=== PATIENT | female | born 1985 | race Caucasian/White ===

== ENCOUNTER 2022-11-11 12:01 | Emergency (ER) | payer MEDICAID, OTHER ==
[~2022-11-11] VITALS: Ht 167 cm; Wt 84.0 kg
[2022-11-11] MEDS ORDERED: ONDANSETRON 4 MG/2 ML (SDV) Z0FRAN IVP ONE (12:15)
[2022-11-11] MEDS ORDERED: KETOROLAC 30 MG/ML VIAL IVP ONE (12:15)
--- NOTE | 2022-11-11 12:15 | ED Chest Pain ---
General Chief Complaint: Chest Pain Stated Complaint: CHEST PAIN/TIGHTNESS Nursing Triage Note: PT AMB TO RM 2 PT CO OF CHEST PAIN THAT STARTED WHILE IN [facility] RATES 10/10, PT HAS INCREASED PAIN WHEN TAKING A DEEP BREATH. PT DECRIBES STABBING AND TIGHT, RADIATES TO SHOULDER Source: patient Exam Limitations: no limitations History of Present Illness Date Seen by Provider: Nov 11, 2022 Time Seen by Provider: 12:05 Initial Comments Patient is a 37-year-old female who presents to the emergency department today with a chief complaint of left-sided chest pain radiating into her left shoulder and shoulder blade. Taking a deep breath seems to make her pain worse . patient states it started at [facility] between 930 and 10:00 this morning. She states at its onset it was a "10 out of 10". She feels like she is a little nauseous and short of breath due to the pain. She did not break out into a sweat. She did not take anything for the pain. She states they ended up leaving [facility] early. No recent fevers or chills. She has been a little congested but no cough. No abdominal pain. No problems with bowel or bladder. No urinary frequency or dysuria. No swelling in her legs. No recent travel or prolonged immobility. She finished her menstrual cycle yesterday. She had an ablation earlier in the year and thought it was a little unusual that she had a period. She states the pain is actually little better now that she is in the emergency room. She rates it at a "7". No significant past medical history, hypercholesterolemia diabetes or hypertension. She is a smoker. No family history of early coronary artery disease younger than 55. All other review of systems reviewed and negative except as stated Timing/Duration: 1-3 hours Severity/Quality: severe, pressure, sharp Location: central, shoulder (left shoulder and shoulder blade) Radiation: shoulders Activities at Onset: other (sitting in [facility]) Prior CP/Workup: no prior chest pain, no prior cardiac workup Modifying Factors: worse with breathing ASA po BULK INTAKE WORKER: No NTG SL BULK INTAKE WORKER: No Associated Symptoms: nausea/vomiting, shortness of breath Allergies and Home Medications Allergies Coded Allergies: sulfamethoxazole (Verified Allergy, Unknown, 11/11/22) trimethoprim (Verified Allergy, Unknown, 11/11/22) Patient Home Medication List Home Medication List Reviewed: Yes Review of Systems Review of Systems Constitutional: see HPI EENTM: No Symptoms Reported Respiratory: Shortness of Air Cardiovascular: Chest Pain Gastrointestinal: Nausea Genitourinary: No Symptoms Reported Musculoskeletal: joint pain (Left shoulder, shoulder blade) Skin: no symptoms reported Psychiatric/Neurological: Anxiety (Tearful, and) All Other Systems Reviewed Negative Unless Noted: Yes Past Vcubzjv-Wqffwe-Kxzeht Hx Patient Social History Tobacco Use?: Yes Substance use?: No Alcohol Use?: No Pt feels they are or have been: No Immunizations Up To Date Influenza Vaccine Up-to-Date: Yes; Up-to-Date Past Medical History Surgery/Hospitalization HX: NONE Last Menstrual Period: Nov 06, 2022 Physical Exam Vital Signs Vital Signs - First Documented 11/11/22 12:05 Pulse 86 Resp 18 B/P (MAP) 122/78 (93) Pulse Ox 98 Capillary Refill : Less Than 3 Seconds Height, Weight, BMI Height: '" Weight: lbs. oz. kg; 30.00 BMI Method: General Appearance: No Apparent Distress, Anxious HEENT: PERRL/EOMI Neck: Normal Inspection Respiratory: Lungs Clear, Normal Breath Sounds, No Accessory Muscle Use, No Respiratory Distress Cardiovascular: Regular Rate, Rhythm, Normal Peripheral Pulses (2+ radial pulses bilateral) Gastrointestinal: Normal Bowel Sounds, Non Tender, Soft Extremity: Normal Capillary Refill, Normal Inspection, Normal Range of Motion, Non Tender, No Calf Tenderness, No Pedal Edema Neurologic/Psychiatric: Alert, Oriented x3, No Motor/Sensory Deficits, Normal Mood/Affect, estate planning attorney II-XII Norm as Tested Skin: Normal Color, Warm/Dry Progress/Results/Core Measures Results/Orders Lab Results Laboratory Tests Test 11/11/22 12:10 Range/Units White Blood Count 7.6 4.3-11.0 10^3/uL Red Blood Count 4.71 3.80-5.11 10^6/uL Hemoglobin 14.4 11.5-16.0 g/dL Hematocrit 43 35-52 % Mean Corpuscular Volume 92 80-99 fL Mean Corpuscular Hemoglobin 31 25-34 pg Mean Corpuscular Hemoglobin Concent 33 32-36 g/dL Red Cell Distribution Width 13.6 10.0-14.5 % Platelet Count 352 130-400 10^3/uL Mean Platelet Volume 9.3 9.0-12.2 fL Immature Granulocyte % (Auto) 0 % Neutrophils (%) (Auto) 57 42-75 % Lymphocytes (%) (Auto) 35 12-44 % Monocytes (%) (Auto) 6 0-12 % Eosinophils (%) (Auto) 1 0-10 % Basophils (%) (Auto) 1 0-10 % Neutrophils # (Auto) 4.4 1.8-7.8 10^3/uL Lymphocytes # (Auto) 2.7 1.0-4.0 10^3/uL Monocytes # (Auto) 0.4 0.0-1.0 10^3/uL Eosinophils # (Auto) 0.1 0.0-0.3 10^3/uL Basophils # (Auto) 0.1 0.0-0.1 10^3/uL Immature Granulocyte # (Auto) 0.0 0.0-0.1 10^3/uL Prothrombin Time 13.0 12.2-14.7 SEC INR Comment 0.9 0.8-1.4 Activated Partial Thromboplast Time 27 24-35 SEC Sodium Level 142 135-145 MMOL/L Potassium Level 3.9 3.6-5.0 MMOL/L Chloride Level 108 H 98-107 MMOL/L Carbon Dioxide Level 24 21-32 MMOL/L Anion Gap 10 5-14 MMOL/L Blood Urea Nitrogen 7 7-18 MG/DL Creatinine 0.74 0.60-1.30 MG/DL Estimat Glomerular Filtration Rate 107 BUN/Creatinine Ratio 9 Glucose Level 89 70-105 MG/DL Calcium Level 8.8 8.5-10.1 MG/DL Corrected Calcium 9.1 8.5-10.1 MG/DL Magnesium Level 2.2 1.6-2.4 MG/DL Total Bilirubin 0.2 0.1-1.0 MG/DL Aspartate Amino Transf (AST/SGOT) 23 5-34 U/L Alanine Aminotransferase (ALT/SGPT) 28 0-55 U/L Alkaline Phosphatase 52 40-136 U/L Myoglobin 23.8 10.0-92.0 NG/ML Troponin I < 0.028 <0.028 NG/ML Total Protein 6.1 L 6.4-8.2 GM/DL Albumin 3.6 3.2-4.5 GM/DL Serum Test, Qualitative NEGATIVE NEGATIVE My Orders Orders - BETSY LEES MD Cbc With Automated Diff (11/11/22 12:15) Magnesium (11/11/22 12:15) Chest 1 View, Ap/Pa Only (11/11/22 12:15) Comprehensive Metabolic Panel (11/11/22 12:15) Myoglobin Serum (11/11/22 12:15) Protime With Inr (11/11/22 12:15) Partial Thromboplastin Time (11/11/22 12:15) O2 (11/11/22 12:15) Monitor-Rhythm Ecg Trace Only (11/11/22 12:15) Lipid Panel (11/12/22 06:00) Ed Iv/Invasive Line Start (11/11/22 12:15) Troponin I Ilda (11/11/22 12:15) Aspirin Chewable Tablet (Baby Aspirin Ch (11/12/22 09:00) Ketorolac Injection (Toradol Injection) (11/11/22 12:15) Ondansetron Injection (Zofran Injectio (11/11/22 12:15) Hcg,Qualitative Serum (11/11/22 12:16) Aspirin Chewable Tablet (Baby Aspirin Ch (11/11/22 12:22) Ekg Tracing (11/11/22 13:05) Orphenadrine Inj (Ed Only) (Norflex Inje (11/11/22 13:30) Medications Given in ED Current Medications Medications Dose Ordered Sig/Lucrecia Route Start Time Stop Time Status Last Admin Dose Admin Ketorolac Tromethamine 30 mg ONCE ONCE IVP 11/11/22 12:15 11/11/22 12:17 DC 11/11/22 12:25 30 MG Ondansetron HCl 4 mg ONCE ONCE IVP 11/11/22 12:15 11/11/22 12:17 DC 11/11/22 12:25 4 MG Orphenadrine Citrate 60 mg ONCE ONCE IV 11/11/22 13:30 11/11/22 13:31 DC 11/11/22 13:53 60 MG Vital Signs/I&O 11/11/22 12:05 Pulse 86 Resp 18 B/P (MAP) 122/78 (93) Pulse Ox 98 Blood Pressure Mean: 93 Progress Progress Note : Time: 13:17 Progress Note Patient re-evaluated after labs, EKG and chest x-ray. She was treated with IV Toradol, low risk on the heart score. Her troponin is negative. She had relief of the chest pain but still has shoulder pain. Given some Norflex IV. No clinical or objective findings of concern for acute pulmonary embolism, pneumonia, pneumothorax, dissection, ACS. Patient is quite relieved with the work-up and agreeable to the plan of care. Home with naproxen, return precautions. Initial ECG Impression Date: Nov 11, 2022 Initial ECG Impression Time: 12:11 Initial ECG Rate: 71 Initial ECG Rhythm: Normal Sinus Initial ECG Intervals: Normal Initial ECG Impression: Normal Diagnostic Imaging Diagonstic Imaging: Xray Plain Films/CT/US/NM/MRI: chest Comments [facility]. [place], [place] NAME: JESSICA GARCIA [facility] REC#: [id number] PT STATUS: REG ER : 1985 PHYSICIAN: BETSY LEES MD ADMIT DATE: 11/11/22/ER Draft Date of Exam:11/11/22 CHEST 1 VIEW, AP/PA ONLY EXAM: CHEST 1 VIEW, AP/PA ONLY INDICATION: Chest pain. COMPARISON: None. FINDINGS: Normal heart size and central pulmonary vascularity. Lungs are clear. No pleural effusion or pneumothorax. No acute osseous findings. IMPRESSION: No acute cardiopulmonary findings. Dictated on workstation # [id number] Dict: 11/11/22 1248 Trans: 11/11/22 1254 AC [id number] Interpreted by: LYDIA AMOR MD Electronically signed by: Counseling-Symptomatic: 3-10 Minutes Follow-up with PCP to: Discuss Further Options Departure Impression Primary Impression: Chest pain Qualified Codes: R07.81 - Pleurodynia Additional Impression: Pleurisy Disposition: HOME, SELF-CARE Condition: Improved Departure-Patient Inst. Decision time for Depature: 13:28 Referrals: DOUG GARCIA MD Patient Instructions: Pleuritic Chest Pain ED Add. Discharge Instructions: Drink lots of fluids to stay well-hydrated. Take the naproxen, 500 mg twice a day with food as needed for pain. If you have a return of symptoms especially worsening with shortness of breath, fever or productive cough, please come back to the emergency room for reevaluation. Follow-up with your primary care doctor as needed Scripts Naproxen (Naprosyn) 500 Mg Tablet 500 MG PO BID PRN for PAIN-MODERATE (5-7), #10 TAB 0 Refills Prov: BETSY LEES MD 11/11/22 Copy Copies To 1: DOUG GARCIA MD, KATHRYN M MD Nov 11, 2022 12:15
[2022-11-11] MEDS ORDERED: ASPIRIN 81 MG CHEW (CHILDREN'S ASA) ONE (12:22)
[2022-11-11 12:23] LABS: BASOPHILS # (AUTO) 0.1 10^3/uL (0.0-0.1); BASOPHILS % (AUTO) 1 % (0-10); EOSINOPHILS # (AUTO) 0.1 10^3/uL (0.0-0.3); EOSINOPHILS % (AUTO) 1 % (0-10); HEMATOCRIT 43 % (35-52); HEMOGLOBIN 14.4 g/dL (11.5-16.0); LYMPHOCYTES # (AUTO) 2.7 10^3/uL (1.0-4.0); LYMPHOCYTES % (AUTO) 35 % (12-44); MEAN CORPUSCULAR HEMOGLOBIN 31 pg (25-34); MEAN CORPUSCULAR HGB CONC 33 g/dL (32-36); MEAN CORPUSCULAR VOLUME 92 fL (80-99); MEAN PLATELET VOLUME 9.3 fL (9.0-12.2); MONOCYTES # (AUTO) 0.4 10^3/uL (0.0-1.0); MONOCYTES % (AUTO) 6 % (0-12); NEUTROPHILS # (AUTO) 4.4 10^3/uL (1.8-7.8); NEUTROPHILS % (AUTO) 57 % (42-75); PLATELET COUNT 352 10^3/uL (130-400); WHITE BLOOD COUNT 7.6 10^3/uL (4.3-11.0)
[2022-11-11 12:36] LABS: ALBUMIN 3.6 GM/DL (3.2-4.5); INR 0.9 (0.8-1.4); POTASSIUM 3.9 MMOL/L (3.6-5.0)
[2022-11-11 12:38] LABS: CALCIUM 8.8 MG/DL (8.5-10.1)
[2022-11-11 12:39] LABS: TOTAL PROTEIN 6.1 GM/DL (6.4-8.2)
[2022-11-11 12:41] LABS: BILIRUBIN,TOTAL 0.2 MG/DL (0.1-1.0)
[2022-11-11 12:43] LABS: CREATININE SERUM 0.74 MG/DL (0.60-1.30)
[2022-11-11 12:46] LABS: MAGNESIUM 2.2 MG/DL (1.6-2.4)
--- NOTE | 2022-11-11 12:54 | Diagnostic Imaging Report ---
EXAM: CHEST 1 VIEW, AP/PA ONLY INDICATION: Chest pain. COMPARISON: None. FINDINGS: Normal heart size and central pulmonary vascularity. Lungs are clear. No pleural effusion or pneumothorax. No acute osseous findings. IMPRESSION: No acute cardiopulmonary findings. Dictated by: Dictated on workstation # [id number]
[2022-11-11] MEDS ORDERED: ORPHENADRINE 60 MG/2 ML (NORFLEX) AMP (ED ONLY) IV ONE (13:30)
[2022-11-11] MEDS ORDERED: NAPR-1071 PO (13:58)
[2022-11-11 14:20] VITALS: BP 100/57
[2022-11-12] MEDS ORDERED: ASPIRIN 81 MG CHEW (CHILDREN'S ASA) PO SCH (09:00)
== END 2022-11-11 14:20 | disposition home or self-care (01) ==
LOC: ER 12:05
DX: R09.1 Pleurisy (principal); M25.512 Pain in left shoulder; F17.200 Nicotine dependence, unspecified, uncomplicated
CPT/HCPCS: 36415; 71045; 80053; 83735; 83874; 84484; 84703; 85025; 85610; 85730; 93005